=== PATIENT | female | born 1980 | race Caucasian/White ===

== ENCOUNTER 2019-03-12 09:58 | Outpatient (CLI) | payer OTHER | END 2019-03-12 10:42 | disposition home or self-care (01) | LOC: LC 09:58 | PROVIDERS: ATTEND Obstetrics & Gynecology | PROC: 4A1HXCZ Monitoring of Products of Conception, Cardiac Rate, External Approach (ICD-10-PCS; principal; 2019-03-12) | DX: O09.523 Supervision of elderly multigravida, third trimester (principal); Z3A.32 32 weeks gestation of pregnancy | CPT/HCPCS: 59025 ==

== ENCOUNTER 2019-04-20 20:39 | Inpatient (IN) | payer OTHER ==
--- NOTE | 2019-04-20 20:40 | Non Stress Test Report ---
Non Stress Test Datetime Report Generated by CPN: 04/20/2019 20:40 DEMOGRAPHIC EGA NST: 32.2 INDICATION Indication for Study: Ordered by Provider VITAL SIGNS Temperature - NST: 97.9 MONITORING Monitor Explained: Monitor Explained; Test Explained; Patient Verbalized Understanding Time on Monitor: 03/12/2019 10:10 Time off Monitor: 03/12/2019 10:35 NST Duration: 25 NST INTERVENTIONS NST Interventions: PO Hydration Physician Notified NST: P.Pinto, CNM BABY A: [id number] BABY A Movement : Present Contraction Frequency : 0 FHR Baseline : 145 Accelerations : 15X15 Decelerations : None Variability : Moderate 6-25bpm NST Review: Meets Criteria for Reactive NST NST Review and Verified By : Kristie Baker RN NST Results: Reactive NST REPORT Report Trigger: Send Report
[2019-04-20 21:28] LABS: APPEARANCE,URINE SLIGHTLY-CLOUDY; BILIRUBIN,URINE NEGATIVE (NEGATIVE); COLOR,URINE YELLOW; GLUCOSE, URINE NEGATIVE (NEGATIVE); KETONES,URINE TRACE mg/dL (NEGATIVE); LEUKOCYTE ESTERASE,URINE NEGATIVE (NEGATIVE); NITRITE,URINE NEGATIVE (NEGATIVE); PROTEIN,URINE NEGATIVE (NEGATIVE); URINE SPECIFIC GRAVITY 1.021; UROBILINOGEN,URINE NEGATIVE mg/dL (<2.0)
[2019-04-20] MEDS ORDERED: RINGERS SOLUTION,LACTATED 1,000 ML IV ONE (21:52)
[2019-04-20 21:54] LABS: URINE AMPHETAMINES SCREEN NEGATIVE; URINE BARBITURATES SCREEN NEGATIVE; URINE BENZODIAZEPINES SCREEN NEGATIVE; URINE COCAINE SCREEN NEGATIVE; URINE MARIJUANA (THC) SCREEN NEGATIVE; URINE METHADONE SCREEN NEGATIVE; URINE PHENCYCLIDINE SCREEN NEGATIVE
[2019-04-20] MEDS: RINGERS SOLUTION,LACTATED 1,000 ML IV PRN ×2 (22:41→23:46)
[2019-04-20 23:01] LABS: ABSOLUTE BASOPHILS # (AUTO) 0.1 10^3/uL (0.0-0.2); ABSOLUTE EOSINOPHILS # (AUTO) 0.2 10^3/uL (0.0-0.6); ABSOLUTE LYMPHOCYTES (AUTO) 2.7 10^3/uL (0.5-4.7); ABSOLUTE NEUT (AUTO) 9.5 10^3/uL (1.7-8.2); BASOPHILS % (AUTO) 0.8 % (0-2); EOSINOPHILS % (AUTO) 1.2 % (0-6); HEMATOCRIT 38.3 % (36.0-47.0); HEMOGLOBIN 13.1 g/dL (12.0-15.5); MEAN CORPUSCULAR HGB CONC 34.1 g/dL (32.0-36.0); MEAN CORPUSCULAR VOLUME 85 fl (80-97); MONOCYTES % (AUTO) 7.4 % (3-13); PLATELET COUNT 195 10^3/uL (150-450); RED BLOOD COUNT 4.52 10^6/uL (3.72-5.28); RED CELL DISTRIBUTION WIDTH 14.8 % (11.5-14.0); SEGMENTED NEUTROPHILS % (AUTO) 70.6 % (42-78); TOTAL CELLS COUNTED % (AUTO) 100 %; WHITE BLOOD COUNT 13.5 10^3/uL (4.0-10.5)
[2019-04-20] MEDS ORDERED: AMPICILLIN SOD INJ 2 GM VIAL ONE (23:44)
[2019-04-21] MEDS ORDERED: BUPIVACAINE HCL 0.25 % INJ/PF (2.5 MG/1 ML) 30 ML VIAL ONE (00:07)
[2019-04-21] MEDS ORDERED: FENTANYL/BUPIVACAINE/NS/PF 300 MCG/150 ML RTUINJ EPI ONE (00:07)
[2019-04-21] MEDS ORDERED: EPHEDRINE SULFATE INJ 50 MG/1 ML AMPULE ONE (00:07)
[2019-04-21] MEDS ORDERED: LIDOCAINE 1% INJ-PF (10 MG/ML) 30 ML SDV ONE (00:10)
[2019-04-21] MEDS ORDERED: OXYTOCIN/NORMAL SALINE 20 UNIT/1,000 ML RTUINJ ONE (00:10)
[2019-04-21] MEDS ORDERED: MISOPROSTOL 0.2 MG TABLET ONE (00:10)
[2019-04-21] MEDS ORDERED: OXYTOCIN 10 UNIT/ML VIAL ONE (00:10)
[2019-04-21] MEDS ORDERED: GENTAMICIN SULFATE INJ 80 MG/2 ML VIAL IV ONE (00:13)
[2019-04-21] MEDS ORDERED: GENTAMICIN SULFATE INJ 80 MG/2 ML VIAL ONE ×3 (00:15→01:54)
--- NOTE | 2019-04-21 00:26 | Admission Physical ---
Datetime Report Generated by CPN: 04/21/2019 00:26 CURRENT ADMISSION Chief Complaint: Uterine Contractions; Suspected Ruptured Membranes Indication for Induction: Not Applicable Admit Impression : Term, Intrauterine ; No Active Labor; Ruptured Membranes Admit Plan: Admit to Unit; Initiate Labor Augmentation Protocol ALLERGIES Medication Allergies: No Medication Allergies: No Known Allergies (04/20/2019) Latex: No Latex Allergies OBSTETRICAL HISTORY EDC: 05/03/2019 00:00 : 5 Para: 2 SAB: 2 Livin Gestational Diabetes: No Rh Sensitization: No Incompetent Cervix: No MAGY: No Infertility: No ART Treatment: No Uterine Anomaly: No IUGR: No Hx Previous C/S: No Macrosomia: No Hx Loss/Stillborn: No PIH: No Hx : No Placenta Previa/Abruption: No Depression/PP Depression: No PTL/PROM: No Post Hemorrhage: No Current Procedures: Ultrasound; NST Obstetrical History Comments: HSV, polyhydramnios, Hx PreE with last , last del. shoulder dystocia at 37weeks 7lb+ SEE RECORDS Alcohol: No Marijuana : No Cocaine: No Other Illicit Drugs: No Cigarettes: Former Smoker. [id number] MEDICAL HISTORY Diabetes: No Blood Transfusion: No Pulmonary Disease (Asthma, TB): No Breast Disease: No Hypertension: No Clinical Rehabilitation Aide Surgery: No Heart Disease: No Hosp/Surgery: No Autoimmune Disorder: No Anesthetic Complications: No Kidney Disease: No Abnormal Pap Smear: No Neuro/Epilepsy: No Psychiatric Disorders: No Other Medical Diseases: No Hepatitis/Liver Disease: No Significant Family History: No Varicosities/Phlebitis: No Trauma/Violence : No Thyroid Dysfunction: No INFECTIOUS HISTORY Gonorrhea: No Genital Herpes: No Chlamydia: No Tuberculosis: No Syphilis: No Hepatitis: No HIV/AIDS Exposure: No Rash or Viral Illness: No HPV: No PHYSICAL EXAM General: Normal HEENT: Normal Neurologic: Normal Thyroid: Deferred Heart: Normal Lungs: Normal Breast: Deferred Back: Normal Abdomen: Normal Genitourinary Exam: Normal Extremities: Normal DTRs: Normal Pelvic Type: Adequate Physical Exam Comments: No outbreaks on exam and no prodrome. Vital Signs: Reviewed VAGINAL EXAM Dilatation: 4 Effacement: 50 Station: -2 Contraction Comments: q 3-4 MEMBRANES Membranes: Ruptured Amniotic Fluid Color: Clear FETUS A EGA: 38.2 Monitoring: External US FHR- Baseline: 125 Variability: Moderate 6-25bpm Accelerations: 15X15 Decelerations: None FHR Category: Category I Presentation: Vertex Admit Comment: 38yo at 38+2ega presents for PROM at approx 0500 on 04/20/2019. She reports clear fluid leaking all day. Irregular ctx. GBS negative. Bilateral renal pelviectasis on US on 03/26. HSV positive h/o outbreak 4 months ago. HSV IgG and IgM drawn. No outbreaks on exam and no prodrome. She was recently noted to have polyhydramnios. EFW 2998g (6#10oz) on 04/09. Pt with h/o thalassemia minor and AMA. 2008 7#10oz. then new FOB with delivery 2013 7#4oz (shoulder stuck). Spoke with jacquard twine polisher operator at [facility] as records still not recieved. They will continue to try to fax them. Reviewed the delivery note with [facility] jacquard twine polisher operator and 200ml EBL reportedly uncomplicated labor, shoulder dystocia 10-15 sec relieved with suzanne and subrapubic. Reviewed delivery with patient and and reviewed concern that this was maybe not really a shoulder dystocia (short time). Pt reports provider was "inexperienced" and new in their rotation. Reviewed size of this baby and the risks that she could still have a shoulder dystocia if baby is larger. She and would like to proceed with vaginal delivery at this time. US with vertex presentation PLANS FOR LABOR AND DELIVERY Labor and Delivery: Plan Pain Management: Epidural Feeding Preference: Breast Circumcision: Yes INFORMED CONSENT Informed Consent Obtained: Vaginal Delivery; Risks, Benefits and Alternatives Discussed Signature: with User ID: [email or web address]
[2019-04-21] MEDS ORDERED: OXYTOCIN/NORMAL SALINE 20 UNIT/1,000 ML RTUINJ IV PRN ×2 (03:35→08:19)
[2019-04-21] MEDS ORDERED: GENTAMICIN SULFATE INJ 80 MG/2 ML VIAL IM SCH (06:00)
[2019-04-21] MEDS ORDERED: AMPICILLIN SOD INJ 2 GM VIAL ONE (06:47)
[2019-04-21] MEDS ORDERED: AMPICILLIN SOD INJ 2 GM VIAL IV SCH (07:00)
[2019-04-21] MEDS ORDERED: GLYCERIN/WITCH HAZEL LEAF 1 EACH MED..WIPE TP PRN (08:19)
[2019-04-21] MEDS ORDERED: BENZOCAINE/MENTHOL AEROSOL SPRAY 56 ML TOP PRN (08:19)
[2019-04-21] MEDS ORDERED: PROMETHAZINE HCL 25 MG SUPP.RECT PR PRN (08:19)
[2019-04-21] MEDS ORDERED: PSEUDOEPHEDRINE HCL 30 MG TABLET PO PRN (08:19)
[2019-04-21] MEDS ORDERED: MAGNESIUM HYDROXIDE SUSP 30 ML UDCUP PO PRN (08:19)
[2019-04-21] MEDS ORDERED: ZOLPIDEM TARTRATE 5 MG TABLET PO PRN (08:19)
[2019-04-21] MEDS ORDERED: NA PHOS,M-B/NA PHOS,DI-BA (ADULT) 133 ML ENEMA PR PRN (08:19)
[2019-04-21] MEDS ORDERED: MEASLES,MUMPS&RUBELLA VACC/PF 0.5 ML VIAL SUBCUT PRN (08:19)
[2019-04-21] MEDS ORDERED: DIPH/PERTUSS(ACELL)/TETANUS VAC/PF 0.5 ML SYR (>=10YO) IM PRN (08:19)
[2019-04-21] MEDS ORDERED: PROMETHAZINE HCL 25 MG TABLET PO PRN (08:19)
[2019-04-21] MEDS ORDERED: ACETAMINOPHEN 325 MG TABLET PO PRN (08:19)
[2019-04-21] MEDS ORDERED: PROMETHAZINE HCL INJ 25 MG/1 ML VIAL IV PRN (08:19)
[2019-04-21] MEDS ORDERED: DIBUCAINE 1% OINTMENT 56 GM TP PRN (08:19)
[2019-04-21] MEDS ORDERED: DIPHENHYDRAMINE HCL 25 MG CAPSULE PO PRN (08:19)
[2019-04-21] MEDS ORDERED: ACETAMINOPHEN WITH CODEINE #3 TABLET PO PRN ×2 (08:19)
[2019-04-21] MEDS ORDERED: AMPICILLIN SOD/SULBACTAM 3 GM VIAL IV SCH (08:30)
--- NOTE | 2019-04-21 09:45 | Delivery Summary ---
Del Sum A-C Datetime Report Generated by CPN: 04/21/2019 09:45 DELIVERY PERSONNEL DELIVERY PERSONNEL: [id number] Delivery Doctor:: Guerline Long MD Anesthesiologist:: Terry House MD Labor and Delivery Nurse:: Gemma Krishnamurthy RNmanager business operations Nurse:: AMELIA Pennington Stock Saw Operator/BUMBOATER: Grace Krishnamurthy CST Stock Saw Operator/BUMBOATER: Vashti Paul, ST MATERNAL INFORMATION Delivery Anesthesia: Epidural Medications After Delivery: Pitocin Bolus-Please Comment; Pitocin Drip 20 Units/1000ml NSS Estimated Blood Loss (ml): 100 Maternal Complications: None Provider Comments: VMI delivered in STEWART presentation. Tight nuchal cord delivered through. Shoulders and body delivered without difficulty. Cord doubly clamped and cut and to maternal abdomen for NRP. Placenta delivered intact spontaneously. Mother and baby stable upon provider leaving the room. FF at U. Good hemostasis after repair of 2nd degree perineal laceration. LABOR SUMMARY EDC: 05/03/2019 00:00 Attempted: No Labor Anesthesia: Epidural LABOR INFORMATION Reason for Induction: Premature Rupture of Membranes Onset of Labor: 04/21/2019 01:44 Complete Dilatation: 04/21/2019 06:27 Other Ripening Agents: pitocin Oxytocin: Augmentation Group B Beta Strep: Negative Antibiotics # of Doses: 3 Antibiotics Time of Last Dose: 20 Name of Antibiotic Given: Ampicillin, Gentamycin Steroids Given: None Reason Steroids Not Administered: Not Applicable MEMBRANES Membranes Rupture Method: Spontaneous Rupture of Membranes: 04/20/2019 05:00 Length of Rupture (hr): 26.68 Amniotic Fluid Color: Clear Amniotic Fluid Amount: Small Amniotic Fluid Odor: Normal STAGES OF LABOR Stage 1 hr: 4 Stage 1 min: 43 Stage 2 hr: 1 Stage 2 min: 14 Stage 3 hr: 0 Stage 3 min: 2 Total Time in Labor hr: 5 Total Time in Labor min: 59 VAGINAL DELIVERY Episiotomy: None Laceration #1: Perineal Laceration Extension #1: Second Degree Laceration Repair: Yes Laceration Repair Note: 2nd degree perineal laceration repaired in usual fashion Sponge Count Correct: Yes Sharps Count Correct: Yes CSECTION DELIVERY Primary Indication: N/A Secondary Indication: N/A CSection Incidence: N/A Labor: N/A Elective: N/A CSection Incision: N/A BABY A INFORMATION Infant Delivery Date/Time: 04/21/2019 07:41 Method of Delivery: Vaginal Born in Route : No : N/A Forceps: N/A Vacuum Extraction: N/A Shoulder Dystocia : No PRESENTATION/POSITION BABY A Presentation: Cephalic Cephalic Presentation: Vertex Vertex Position: Left Occipital Anterior Breech Presentation: N/A PLACENTA INFORMATION BABY A Placenta Delivery Time : 04/21/2019 07:43 Placenta Method of Delivery: Spontaneous Placenta Status: Delivered SCORES BABY A Heart Rate 1 min: >100 bpm Resp Effort 1 min: Good Cry Reflex Irritability 1 min: Cough or Sneeze or Pulls Away Muscle Tone 1 min: Active Motion Color 1 min: Body [place], Extremities Blue Resuscitation Effort 1 min: Tactile Stimulation SCORE 1 MIN: 9 Heart Rate 5 min: >100 bpm Resp Effort 5 min: Good Cry Reflex Irritability 5 min: Cough or Sneeze or Pulls Away Muscle Tone 5 min: Active Motion Color 5 min: Body [place], Extremities Blue Resuscitation Effort 5 min: Tactile Stimulation SCORE 5 MIN: 9 INFANT INFORMATION BABY A Gestational Age at Delivery: 38.2 Gestational Status: Early Term- 37- 38.6 Weeks Outcome : Liveborn Condition : Stable Infant Sex: Male IDENTIFICATION BABY A Infant Verification Date/Time: 04/21/2019 08:29 ID Band Number: [id number] Mother's Name Verified: Yes Infant RN Verifying : MDevon KRISHNAMURTHY RN. D. Toyance RN WEIGHT/LENGTH BABY A Infant Birthweight (gm): 3592 Infant Weight (lb): 7 Infant Weight (oz): 15 Infant Length (in): 20.50 Length (cm): 52.07 CORD INFORMATION BABY A No. Cord Vessels: 3 Nuchal Cord : Around Neck x1, Tight Cord Blood Taken: Yes-For Storage (Mom's Blood type +) Suction: None ASSESSMENT BABY A Infant Complications: None Physical Findings at Delivery: Bruising Infant Respirations: Appears Normal Skin to Skin: Yes Skin to Skin Time (min): 90 Welding Setter/ALS Called : No Infant Care By: Román Ervin RN Transferred To: Remains with Mother BABY B INFORMATION : N/A SIGNATURES Signature: with User ID: [email or web address]
[2019-04-21] MEDS: PRENATAL VITAMIN W DHA CAPSULE PO SCH (10:34)
[2019-04-21] MEDS: DOCUSATE SODIUM 100 MG CAPSULE PO SCH ×2 (10:34→18:14)
[2019-04-21] MEDS: FAMOTIDINE 20 MG TABLET PO SCH ×2 (10:34→21:30)
[2019-04-21] MEDS: FERROUS SULFATE 325 MG TABLET PO SCH ×2 (10:34→18:14)
[2019-04-21] MEDS: SENNOSIDES/DOCUSATE 8.6-50 MG 1 EACH TABLET PO SCH (10:34)
[2019-04-21] MEDS: IBUPROFEN 800 MG TABLET PO SCH ×2 (13:07→21:30)
[2019-04-21] MEDS: AMPICILLIN SODIUM 2 GM in NORMAL SALINE 100 ML IV SCH (20:44)
[2019-04-22] MEDS: IBUPROFEN 800 MG TABLET PO SCH ×3 (06:17→21:30)
[2019-04-22 06:28] LABS: HEMATOCRIT 37.5 % (36.0-47.0); HEMOGLOBIN 12.7 g/dL (12.0-15.5); MEAN CORPUSCULAR HEMOGLOBIN 28.7 pg (27.0-33.4); MEAN CORPUSCULAR HGB CONC 33.8 g/dL (32.0-36.0); MEAN CORPUSCULAR VOLUME 85 fl (80-97); PLATELET COUNT 154 10^3/uL (150-450); RED BLOOD COUNT 4.42 10^6/uL (3.72-5.28); RED CELL DISTRIBUTION WIDTH 15.1 % (11.5-14.0); WHITE BLOOD COUNT 14.4 10^3/uL (4.0-10.5)
[2019-04-22 08:12] LABS: HSV-I IGG AB 3.93 index (0.00-0.90)
[2019-04-22] MEDS: SENNOSIDES/DOCUSATE 8.6-50 MG 1 EACH TABLET PO SCH (10:17)
[2019-04-22] MEDS: PRENATAL VITAMIN W DHA CAPSULE PO SCH (10:17)
[2019-04-22] MEDS: FAMOTIDINE 20 MG TABLET PO SCH ×2 (10:17→21:30)
[2019-04-22] MEDS: DOCUSATE SODIUM 100 MG CAPSULE PO SCH ×2 (10:17→17:29)
[2019-04-22] MEDS: FERROUS SULFATE 325 MG TABLET PO SCH ×2 (10:17→17:29)
--- NOTE | 2019-04-22 12:38 | PDOC PROGRESS REPORT ---
Subjective-OB Progress Note for:: 04/22/19 Subjective: Pt doing well, no complaints. She reports light bleeding, reg diet and voiding without difficulty. Physical Exam (OB) Vital Signs: Temp Pulse Resp BP Pulse Ox 97.5 F 78 14 108/70 98 04/22/19 07:47 04/22/19 07:47 04/22/19 07:47 04/22/19 07:47 04/22/19 07:47 Intake & Output 04/21/19 04/22/19 04/23/19 06:59 06:59 06:59 Intake Total 135 400 Balance 135 400 Weight 98.7 kg - PIH/Pre-Eclampsia DTR's: 1 + Clonus: Negative Headache: Absent Epigastric Pain: No Visual Changes: No - Lochia Lochia Amount: Small 10-25 ml Lochia Color: Rubra/Red - Abdomen Description: Tender, Soft, Round Hernia Present: Yes Fundal Description: Firm, Midline Fundal Height: u/u - u/2 Objective-Diagnostic Laboratory: 04/22/19 06:04 04/22/19 06:04 WBC 14.4 H RBC 4.42 Hgb 12.7 Hct 37.5 MCV 85 MCH 28.7 MCHC 33.8 RDW 15.1 H Plt Count 154 Assessment and Plan(PN) - Assessment and Plan (1) Vaginal delivery Is this a current diagnosis for this admission?: Yes (2) Advanced maternal age (AMA) in Is this a current diagnosis for this admission?: Yes (3) Polyhydramnios Qualifiers: Fetus number: single or unspecified fetus Trimester: third trimester Qualified Code(s): O40.3XX0 - Polyhydramnios, third trimester, not applicable or unspecified Is this a current diagnosis for this admission?: Yes (4) Prolonged rupture of membranes Is this a current diagnosis for this admission?: Yes - Time Spent with Patient Time with patient: Less than 15 minutes Medications reviewed and adjusted accordingly: Yes - Disposition Anticipated Discharge: Home Within: within 24 hours
[2019-04-23] MEDS: IBUPROFEN 800 MG TABLET PO SCH ×2 (06:17→14:36)
[2019-04-23 08:17] VITALS: BP 124/70
[2019-04-23] MEDS: FAMOTIDINE 20 MG TABLET PO SCH (09:11)
[2019-04-23] MEDS: SENNOSIDES/DOCUSATE 8.6-50 MG 1 EACH TABLET PO SCH (09:11)
[2019-04-23] MEDS: PRENATAL VITAMIN W DHA CAPSULE PO SCH (09:11)
[2019-04-23] MEDS: DOCUSATE SODIUM 100 MG CAPSULE PO SCH (09:11)
[2019-04-23] MEDS: FERROUS SULFATE 325 MG TABLET PO SCH (09:11)
--- NOTE | 2019-04-23 09:39 | PDOC PROGRESS REPORT ---
Subjective-OB Progress Note for:: 04/23/19 Subjective: Ready for discharge. Physical Exam (OB) Vital Signs: Temp Pulse Resp BP Pulse Ox 97.7 F 76 18 124/70 99 04/23/19 08:16 04/23/19 08:16 04/23/19 08:16 04/23/19 08:16 04/23/19 08:16 Intake & Output 04/22/19 04/23/19 04/24/19 06:59 06:59 06:59 Intake Total 400 Balance 400 - PIH/Pre-Eclampsia DTR's: 1 + Clonus: Negative Headache: Absent Epigastric Pain: No Visual Changes: No - Dressing Removed: Yes - Lochia Lochia Amount: Scant < 10 ml Lochia Color: Rubra/Red - Abdomen Description: Tender, Soft, Round Hernia Present: No Bowel Sounds: Normoactive Flatus Presence: Present Stool: Yes Fundal Description: Firm, Midline Fundal Height: u/u - u/2 Objective-Diagnostic Laboratory: 04/22/19 06:04 Assessment and Plan(PN) - Time Spent with Patient Medications reviewed and adjusted accordingly: Yes - Disposition Anticipated Discharge: Home
--- NOTE | 2019-04-23 09:44 | PDOC DISCHARGE SUMMARY ---
Final Diagnosis Discharge Date: 04/23/19 - Final Diagnosis (1) Advanced maternal age (AMA) in Is this a current diagnosis for this admission?: Yes (2) Polyhydramnios Is this a current diagnosis for this admission?: Yes (3) Premature rupture of membranes Is this a current diagnosis for this admission?: Yes (4) Prolonged rupture of membranes Is this a current diagnosis for this admission?: Yes (5) Vaginal delivery Is this a current diagnosis for this admission?: Yes Discharge Data - Discharge Medication Home Medications: [id number]/Iron/Folic/Dha [ Formula-Dha Softgel] 1 cap PO DAILY 03/12/19 Valacyclovir HCl [Valtrex 500 mg Tablet] 500 mg PO BID 03/12/19 Gestational Age: 38.2 wks Reason(s) for Admission: Onset of Labor Procedures: Ultrasound Intrapartum Procedure(s): Spontaneous Vaginal Delivery Complication(s): Laceration-Perineal Laceration-Degree: 2nd - Data Baby 1 Male at 1 minute: 9 at 5 minutes: 9 Weight: 3.6 kg Home with Mother: Yes Complications: No - Diagnosis Test Laboratory: Temp Pulse Resp BP Pulse Ox 97.7 F 76 18 124/70 99 04/23/19 08:16 04/23/19 08:16 04/23/19 08:16 04/23/19 08:16 04/23/19 08:16 04/20/19 04/20/19 04/22/19 21:10 22:41 06:04 RBC 4.52 4.42 Hgb 13.1 12.7 Hct 38.3 37.5 Urine Opiates Screen NEGATIVE - Discharge information/Instructions Discharge Activity: Activity As Tolerated, Balance Activity w/Rest, Pelvic Rest, Slowly Increase Activity, No tub bath Discharge Diet: Regular Disposition: HOME, SELF-CARE Follow [facility] with: [facility] in: 4, Weeks
== END 2019-04-23 18:02 | disposition home or self-care (01) | DRG 806 ==
LOC: LC 20:39 → LR 21:59 → 2S 04-21 09:55
PROVIDERS: ADMIT Student in an Organized Health Care Education/Training Program; ATTEND Student in an Organized Health Care Education/Training Program
PROC: 10E0XZZ Delivery of Products of Conception, External Approach (ICD-10-PCS; principal; 2019-04-21)
PROC: 0KQM0ZZ Repair Perineum Muscle, Open Approach (ICD-10-PCS; 2019-04-21)
PROC: 4A1HX4Z Monitoring of Products of Conception, Cardiac Electrical Activity, External Approach (ICD-10-PCS; 2019-04-21)
DX: O42.92 Full-term premature rupture of membranes, unspecified as to length of time between rupture and onset of labor (principal); O98.513 Other viral diseases complicating pregnancy, third trimester; Z37.0 Single live birth; O40.3XX0 Polyhydramnios, third trimester, not applicable or unspecified; O69.1XX0 Labor and delivery complicated by cord around neck, with compression, not applicable or unspecified; O70.1 Second degree perineal laceration during delivery; B00.9 Herpesviral infection, unspecified; Z3A.38 38 weeks gestation of pregnancy; Z87.891 Personal history of nicotine dependence
CPT/HCPCS: 36415; 80307; 81005; 84112; 85025; 85027; 86592; 86695; 86850; 86900; 86901; 88307; 94760; J0290; J1580; J2590; J3010; J3490; J7050